=== PATIENT | female | born 1950 | race Caucasian/White ===

== ENCOUNTER 2016-08-25 14:39 | Outpatient (CLI) | payer OTHER, MEDICAID ==
[~2016-08-25 14:39] MED LIST: CAT.1 PO; LOSA100T11 PO; METO200T3 PO; NITSL SL; NOR10 PO
== END 2016-08-25 19:58 | disposition home or self-care (01) ==
LOC: SRD 14:39
PROVIDERS: ATTEND Internal Medicine
DX: M47.892 Other spondylosis, cervical region (principal); M47.896 Other spondylosis, lumbar region; M85.88 Other specified disorders of bone density and structure, other site; M25.512 Pain in left shoulder
CPT/HCPCS: 72050-TC; 72110